=== PATIENT | female | born 1980 | race Two or more races ===

== ENCOUNTER 2020-02-12 23:10 | Emergency (ER) | payer OTHER ==
[~2020-02-12] VITALS: Ht 154.9 cm; Wt 68.0 kg
[2020-02-13] MEDS ORDERED: ZYNCOF 20-400120 ML PO (02:46)
== END 2020-02-13 03:11 | disposition home or self-care (01) ==
LOC: ER 23:10
DX: R50.9 Fever, unspecified (principal); R05 Cough; R06.02 Shortness of breath; Z03.818 Encounter for observation for suspected exposure to other biological agents ruled out